=== PATIENT | male | born 1995 | race African-American/Black ===

== ENCOUNTER 2019-05-02 19:22 | Emergency (ER) | payer OTHER ==
[2019-05-02] MEDS ORDERED: TETANUS AND DIPHTHERIA TOXOID 0.5 ML DISP.SYRIN IM ONE (19:29)
[2019-05-02] MEDS ORDERED: ACETAMINOPHEN 500 MG TABLET (FP) PO ONE (19:30)
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
[2019-05-02 19:31] VITALS: BP 152/84; PULSE 99; TEMP 98.6; BMI 24.4
[2019-05-02] MEDS ORDERED: ACETAMINOPHEN 325 MG TABLET (FP) ONE (19:49)
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
[2019-05-02] MEDS ORDERED: DIPHTH,PERTUSS(ACELL),TET 0.5 ML DISP.SYRIN IM ONE (21:49)
== END 2019-05-02 22:20 | disposition home or self-care (01) ==
LOC: JER 19:22
PROC: 3E0234Z Introduction of Serum, Toxoid and Vaccine into Muscle, Percutaneous Approach (ICD-10-PCS; principal; 2019-05-02)
DX: S09.93XA Unspecified injury of face, initial encounter (principal); S09.90XA Unspecified injury of head, initial encounter; Y04.2XXA Assault by strike against or bumped into by another person, initial encounter; Y93.89 Activity, other specified; Y92.89 Other specified places as the place of occurrence of the external cause
CPT/HCPCS: 70450-TC; 70486-TC; 90471; 99281-25

== ENCOUNTER 2019-06-23 03:07 | Emergency (ER) | payer OTHER ==
--- NOTE | 2019-06-23 03:55 | PDOC ---
History of Present Illness - General Chief Complaint: Ear Problem Stated Complaint: EARACHE Time Seen by Provider: 06/23/19 03:55 - History of Present Illness Initial Comments: 24 year old male with no PMH presenting with ear fullness and difficulty hearing for the past day. States that he felt as if he had a lot wax in his ear and attempted to clean it out with hydrogen peroxide. Denies any pain, fevers, chills, drainage, or other symptoms. the hydrogen peroxide did help a little bit but he wanted to get checked out because he is still having symptoms. 06/23/19 05:14 Past History - Past Medical History Allergies/Adverse Reactions: Allergies Allergy/AdvReac Type Severity Reaction Status Date / Time No Known Allergies Allergy Verified 06/23/19 03:48 Home Medications: Ambulatory Orders Ibuprofen 600 mg PO QID PRN #20 tablet 05/02/19 - Psycho Social/Smoking Cessation Hx Smoking History: Never smoked Have you smoked in the past 12 months: No Information on smoking cessation initiated: No Hx Alcohol Use: No Drug/Substance Use Hx: No Review of Systems - Review of Systems Constitutional: No: Chills, Diaphoresis, Fever, Loss of Appetite HEENTM: Yes: Hearing Loss. No: Eye Pain, Blurred Vision, Tearing, Ear Discharge Respiratory: Yes: Cough, Shortness of Breath Cardiac (ROS): No: Chest Pain, Irregular Heart Rate, Lightheadedness ABD/GI: No: Diarrhea, Nausea, Vomiting Integumentary: No: Lesions, Lumps, Pallor Neurological: No: Headache, Numbness, Paresthesia Psychiatric: No: Anxiety, Depression Hematologic/Lymphatic: No: Anemia, Blood Clots, Easy Bleeding *Physical Exam - Vital Signs Last Vital Signs Temp Pulse Resp BP Pulse Ox 97.9 F 88 20 128/79 99 06/23/19 03:48 06/23/19 03:48 06/23/19 03:48 06/23/19 03:48 06/23/19 03:48 - Physical Exam General Appearance: Yes: Nourished, Appropriately Dressed. No: Apparent Distress HEENT: positive: EOMI, BRYAN. negative: Normal ENT Inspection (swollen and boggy auditory canal and unable to visualize TMs) Neck: positive: Trachea midline, Normal Thyroid, Supple. negative: Tender, Rigid Respiratory/Chest: positive: Lungs Clear, Normal Breath Sounds. negative: Chest Tender, Respiratory Distress, Accessory Muscle Use Cardiovascular: positive: Regular Rhythm, Regular Rate Gastrointestinal/Abdominal: positive: Normal Bowel Sounds, Flat, Soft. negative : Tender Lymphatic: negative: Adenopathy, Tenderness Musculoskeletal: positive: Normal Inspection. negative: Decreased Range of Motion Extremity: positive: Normal Capillary Refill, Normal Inspection, Normal Range of Motion. negative: Tender Integumentary: positive: Normal Color, Dry, Warm Neurologic: positive: Fully Oriented, Alert, Normal Mood/Affect, Normal Response , Motor Strength 5/5 Medical Decision Making - Medical Decision Making 24 year old male with ear fullness but no fevers, chills, or pain. Cerumen distributed around ear canal obscuring view but no concern for otitis media or externa. Will DC with ear hygiene tips and return precautions. 06/23/19 05:22 Discharge - Discharge Information Problems reviewed: Yes Clinical Impression/Diagnosis: Cerumen debris on tympanic membrane of both ears Condition: Stable Disposition: HOME - Admission No - Follow up/Referral Referrals: [facility] [Provider Group] - Patient Discharge Instructions Patient Printed Discharge Instructions: DI for Cerumen Impaction Additional Instructions: Please use the hydrogen peroxide daily, please see your primary care doctor and return to the ED if you have new or worsening symptoms. - Post Discharge Activity
[2019-06-23 04:39] VITALS: BP 128/79; PULSE 88; TEMP 97.9; BMI 29.2
--- NOTE | 2019-06-23 06:09 | PDOC ---
Attending Attestation - Resident Resident Name: Ariella Ryder - ED Attending Attestation I have performed the following: I have examined & evaluated the patient, The case was reviewed & discussed with the resident, I agree w/resident's findings & plan, Exceptions are as noted - HPI HPI: 06/23/19 06:12 Mr Celis is a 24 yo M who presents to the ER with a complaint of ear fullness Pt states he has noted cerumen impaction He put hydrogen peroxide in his ears to attempt to clean them This has not worked At some point earlier today, he noted a popping sensation in his ears which he likens to when a door slams in a car No fevers or chills No pain with movement of the tragus No neck pain No tinnitus - Physicial Exam PE: 06/23/19 06:14 On exam Pt is in no acute distress Awake and alert Conjunctival injection, EOMI Bilaterally, external auditory canals are narrow and covered in wax TM not visualized No LAD RRR CTA No abd tenderness neurologically intact - Medical Decision Making 06/23/19 06:16 Pt has very narrow EACs No evidence of otitis externa No evidence of otitis interna No blisters or skin sloughing seen in the ear No pain with moving the ear No mastoid tenderness Will discharge to home Pt to follow up with ENT Can continue to gently clean the outside of his ear Pt asked to avoid using Q Tips
== END 2019-06-23 05:38 | disposition home or self-care (01) ==
LOC: JER 03:07
DX: H61.23 Impacted cerumen, bilateral (principal)
CPT/HCPCS: 99282-25

== ENCOUNTER 2020-06-30 17:36 | Emergency (ER) | payer SELFPAY ==
[2020-06-30 17:55] VITALS: BP 138/80; PULSE 81; TEMP 97.8; BMI 33.4
--- OUTSIDE RECORDS SUMMARY | 2020-06-30 18:11 | XMS ---
:1995 Author Organization [facility] Support Name Relationship Address Phone SE Unavailable Unavailable Unavailable EDUARDO MIGUEL FATHER [address] [place] [address] Re-disclosure Warning The records that you are about to access may contain information from federally- assisted alcohol or drug abuse programs. If such information is present, then the following federally mandated warning applies: This information has been disclosed to you from records protected by federal confidentiality rules (42 CFR part 2). The federal rules prohibit you from making any further disclosure of this information unless further disclosure is expressly permitted by the written consent of the person to whom it pertains or as otherwise permitted by 42 CFR part 2. A general authorization for the release of medical or other information is NOT sufficient for this purpose. The Federal rules restrict any use of the information to criminally investigate or prosecute any alcohol or drug abuse patient.The records that you are about to access may contain highly sensitive health information, the redisclosure of which is protected by Article 27-F of the [facility] Public Health law. If you continue you may haveaccess to information: Regarding HIV / AIDS; Provided by facilities licensed or operated by the [facility] Office of Mental Health; or Provided by the [facility] Office for People With Developmental Disabilities. If such information is present, then the following [facility] mandated warning applies: This information has been disclosed to you from confidential records which are protected by state law. State law prohibits you from making any further disclosure of this information without the specific written consent of the person to whom it pertains, or as otherwise permitted by law. Any unauthorized further disclosure in violation of state law may result in a fine or intermediate sentence or both. A general authorization for the release of medical or other information is NOT sufficient authorization for further disclosure. Insurance Providers Payer name Policy type Policy ID Covered Covered libertarian's Policy P flores / Coverage libertarian ID relationship to Demarco Inf ormation type demarco SELF PAY SP INSURANCE [place] [id number]
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
== END 2020-06-30 20:05 | disposition home or self-care (01) ==
LOC: JERFT 17:36
DX: L04.0 Acute lymphadenitis of face, head and neck (principal)
CPT/HCPCS: 70480-TC; 99284-25